=== PATIENT | male | born 1995 | race African-American/Black ===

== ENCOUNTER 2023-01-14 18:21 | Observation (INO) | payer SELFPAY ==
[2023-01-14] MEDS ORDERED: Sodium Chloride 0.9% 1,000 ML IV ONE (18:32)
[2023-01-14] MEDS ORDERED: Acetaminophen 325 MG Tab PO ONE (18:32)
[2023-01-14] MEDS ORDERED: cefTRIAXone 1 GM Vial IVPUSH ONE (18:42)
[2023-01-14 18:49] LABS: BASOPHILS PERCENT AUTO 0.1 % (0.2-1.2); EOSINOPHILS PERCENT AUTO 0.3 % (0.0-4.0); IMMATURE GRAN ABSOLUTE AUTO 0.01 x10^3/uL (0.00-0.07); LYMPHOCYTES ABSOLUTE AUTO 0.7 x10^3/uL (1.0-4.8); LYMPHOCYTES PERCENT AUTO 9.8 % (25.0-50.0); MEAN CORPUSCULAR HEMOGLOBIN 30.4 pg (26.0-32.0); MEAN CORPUSCULAR HGB CONC 35.7 g/dL (32.0-36.0); MEAN CORPUSCULAR VOLUME 85.2 fL (78.0-93.0); MONOCYTES ABSOLUTE AUTO 0.1 x10^3/uL (0.0-0.8); NEUTROPHILS ABSOLUTE AUTO 6.2 x10^3/uL (1.8-7.7); NEUTROPHILS PERCENT AUTO 88.7 % (50.0-80.0); PLATELET COUNT,PLT 218 x10^3/uL (130-400); RED BLOOD CELL COUNT 4.93 x10^6/uL (4.5-6.0)
[2023-01-14 19:06] LABS: ALANINE AMINOTRANSFERASE,ALT 179 U/L (16-63); ALBUMIN 4.2 g/dL (3.4-5.0); ALKALINE PHOSPHATASE 73 U/L (46-116); ANION GAP 19.5 mmol/L (5-15); ASPARTATE AMNIOTRANSFERASE,AST 268 U/L (15-37); BILIRUBIN TOTAL 1.7 mg/dL (0.2-1.0); BLOOD UREA NITROGEN,BUN 8 mg/dL (7-18); C-REACTIVE PROTEIN 1.5 mg/dL (<=0.9); CARBON DIOXIDE,CO2 22 mmol/L (21-32); CHLORIDE,CL 99 mmol/L (98-107); CREATININE 1.2 mg/dL (0.70-1.30); ESTIMATED GFR 85 mL/min (>=60); GLUCOSE RANDOM 108 mg/dL (70-99); POTASSIUM,K 3.5 mmol/L (3.5-5.1); PROTEIN TOTAL,TP 7.7 g/dL (6.4-8.2); SODIUM,NA 137 mmol/L (136-145)
[2023-01-14 19:25] LABS: APPEARANCE,URINE CLEAR (CLEAR); BILIRUBIN,URINE NEGATIVE (NEGATIVE); COLOR,URINE YELLOW (YELLOW); GLUCOSE,URINE NEGATIVE (NEGATIVE); KETONES,URINE 40 mg/dL (NEGATIVE); LEUKOCYTE ESTERASE,URINE NEGATIVE (NEGATIVE); NITRITE,URINE NEGATIVE (NEGATIVE); OCCULT BLOOD,URINE NEGATIVE (NEGATIVE); PH,URINE 5.5 (5.0-8.0); PROTEIN,URINE NEGATIVE (NEGATIVE); UROBILINOGEN,URINE 0.2 EU/dL (0.2)
[2023-01-14] MEDS ORDERED: Iopamidol 612 MG/ML 100 ML Bottle IVPUSH ONE (19:36)
[2023-01-14] MEDS ORDERED: Ondansetron 4 MG/2 ML SDV IV PRN (21:33)
[2023-01-14] MEDS ORDERED: Ibuprofen 200 MG Tab PO PRN (21:33)
[2023-01-14] MEDS ORDERED: Ondansetron 4 MG Tab.DIS PO PRN (21:33)
[2023-01-14] MEDS: Sodium Chloride 0.9% 1,000 ML IV SCH (22:21)
[2023-01-15] MEDS: Sodium Chloride 0.9% 1,000 ML IV SCH (06:03)
[2023-01-15 06:48] LABS: HEMATOCRIT 37.6 % (40.0-52.0); HEMOGLOBIN 13.2 g/dL (14.0-18.0); MEAN CORPUSCULAR HEMOGLOBIN 30.3 pg (26.0-32.0); MEAN CORPUSCULAR HGB CONC 35.1 g/dL (32.0-36.0); MEAN CORPUSCULAR VOLUME 86.2 fL (78.0-93.0); RED BLOOD CELL COUNT 4.36 x10^6/uL (4.5-6.0); WHITE BLOOD CELL COUNT,WBC 13.9 x10^3/uL (4.0-10.0)
[2023-01-15 07:08] LABS: ALBUMIN 3.5 g/dL (3.4-5.0); ANION GAP 14.8 mmol/L (5-15); BILIRUBIN TOTAL 1.1 mg/dL (0.2-1.0); C-REACTIVE PROTEIN 5.2 mg/dL (<=0.9); CALCIUM 8.4 mg/dL (8.5-10.1); EST CRCL DRUG DOSING (CG) 129.01 mL/min; POTASSIUM,K 3.8 mmol/L (3.5-5.1)
[2023-01-17 11:11] LABS: HBSAG SCREEN Negative (Negative); HCV AB Non Reactive (Non Reactive); HEP A AB, IGM Negative (Negative); HEP B CORE AB, IGM Negative (Negative)
== END 2023-01-15 14:50 | disposition home or self-care (01) ==
LOC: VM.ED 18:21 → VM.MS 21:05
PROVIDERS: ADMIT Physician Assistant Medical; ATTEND Physician Assistant Medical
DX: B17.9 Acute viral hepatitis, unspecified (principal); R50.82 Postprocedural fever; Z87.891 Personal history of nicotine dependence; Z20.822 Contact with and (suspected) exposure to COVID-19
CPT/HCPCS: 36415; 71046; 74177; 76705; 80053; 80074; 81003; 83605; 85025; 85027; 86140; 87040; 93005; 96361; 96374; 99285-25; A9270-GY; G0378; J0696; J7030; Q9967; U0002